=== PATIENT | male | born 1970 | race Caucasian/White ===

== ENCOUNTER 2020-03-27 12:04 | Emergency (ER) | payer OTHER ==
[~2020-03-27] VITALS: Ht 167.6 cm; Wt 67.1 kg
[2020-03-27] MEDS ORDERED: KETO10TA2 (12:30)
== END 2020-03-27 19:59 | disposition home or self-care (01) ==
LOC: ER 12:04
DX: K81.9 Cholecystitis, unspecified (principal); K82.1 Hydrops of gallbladder; R10.11 Right upper quadrant pain

== ENCOUNTER 2021-10-12 10:22 | Emergency (ER) | payer OTHER ==
[~2021-10-12] VITALS: Ht 165.1 cm; Wt 66.2 kg
[~2021-10-12 10:22] MED LIST: KETO10TA2
== END 2021-10-12 15:30 | disposition home or self-care (01) ==
LOC: ER 10:22
DX: M79.605 Pain in left leg (principal); Z88.0 Allergy status to penicillin

== ENCOUNTER 2021-10-17 15:28 | Outpatient (CLI) | payer OTHER | END 2021-10-17 15:45 | disposition home or self-care (01) | LOC: RAD 15:28 | PROVIDERS: ATTEND Internal Medicine | DX: M79.662 Pain in left lower leg (principal) ==